=== PATIENT | male | born 1940 | race Caucasian/White ===

== ENCOUNTER 2017-12-28 07:59 | Day surgery (SDC) | payer OTHER, BC ==
[2017-12-28 08:47] VITALS: BMI 28.9
[2017-12-28] MEDS ORDERED: PROPOFOL 20 ML ONE ×5 (08:56)
[2017-12-28] MEDS ORDERED: LIDOCAINE HCL/PF 2% SDV 5ML VIAL ONE (08:56)
[2017-12-28 10:07] VITALS: TEMP 98
[2017-12-28 11:08] VITALS: BP 138/90; PULSE 56
--- NOTE | 2017-12-31 11:47 | PATH ---
Surgical Pathology Report Patient Name: MARINA HUGHES [facility]. Rec. #: [id number] /Age/Gender: 1940 (Age: 77) / M Account: [id number] Location: U-ENDOSCOPY Taken: 12/28/2017 Received: 12/28/2017 Reported: 12/31/2017 Physicians: Inder Stevens M.D. Specimen(s) Received A: BX SECOND PORTION DUODENUM AND BULB B: BX ANTRUM AND BODY C: BX RECTAL POLYP D: POLYP ROXIMAL TRANSVERSE COLON E: MID TRANSVERSE COLON POLYP Clinical History Abdominal pain Family history colon adenoma, colon cancer screening Final Diagnosis A. DUODENUM, SECOND PORTION AND BULB, BIOPSY: DUODENAL MUCOSA WITH NO PATHOLOGIC CHANGES. NO HISTOLOGIC EVIDENCE OF GLUTEN SENSITIVE ENTEROPATHY (CELIAC SPRUE) IDENTIFIED. B. STOMACH, ANTRUM AND BODY, BIOPSY: MODERATE CHRONIC GASTRITIS. IMMUNOSTAIN FOR H. PYLORI IS POSITIVE (FEW ORGANISMS). C. COLON, RECTUM, BIOPSY: HYPERPLASTIC POLYP. D. COLON, PROXIMAL TRANSVERSE, POLYPECTOMY: TWO PORTIONS OF TUBULAR ADENOMA. E. COLON, MIDTRANSVERSE, BIOPSY: COLONIC MUCOSA WITH NO PATHOLOGIC CHANGES. NO ADENOMATOUS OR HYPERPLASTIC CHANGES IDENTIFIED. Comment: Recommend correlation with clinical findings and follow up as clinically indicated. Electronically Signed Sedrick Ga M.D. Gross Description A. Received in formalin, labeled "BX second portion duodenum and duodenal bulb" are 4 michael, irregular portions of soft tissue measuring 0.1-0.3 cm. in greatest dimension. The specimens are submitted in toto in one cassette. B. Received in formalin, labeled "BX antrum and body" are 5 michael, irregular portions of soft tissue ranging in size from 0.2-0.4 cm. in greatest dimension. The specimens are submitted in toto in one cassette. C. Received in formalin, labeled "BX rectal polyp" are 4 michael, irregular portions of soft tissue ranging in size 0.1 and 0.2 cm. in greatest dimension. The specimens are submitted in toto in one cassette. D. Received in formalin, labeled "polyp proximal transverse colon" are multiple michael, irregular portions of soft tissue ranging in size from 0.1-0.5 cm. in greatest dimension. The base of the largest polyp is inked in black and subsequently bisected. The specimens are submitted in toto in 2 cassettes (2-largest polyp). E. Received in formalin, labeled "mid transverse colon polyp" is a michael, irregular portion of soft tissue measuring 0.1 cm. in greatest dimension. The specimen is submitted in toto in one cassette. MP/12/28/2017 donal12/28/2017
== END 2017-12-28 11:07 | disposition home or self-care (01) ==
LOC: JASU-ENDO 07:59
PROVIDERS: ATTEND Internal Medicine Gastroenterology
PROC: 0DBP8ZX Excision of Rectum, Via Natural or Artificial Opening Endoscopic, Diagnostic (ICD-10-PCS; 2017-12-28)
PROC: 0DB98ZX Excision of Duodenum, Via Natural or Artificial Opening Endoscopic, Diagnostic (ICD-10-PCS; 2017-12-28)
PROC: 0DB68ZX Excision of Stomach, Via Natural or Artificial Opening Endoscopic, Diagnostic (ICD-10-PCS; 2017-12-28)
PROC: 0DBL8ZX Excision of Transverse Colon, Via Natural or Artificial Opening Endoscopic, Diagnostic (ICD-10-PCS; principal; 2017-12-28 08:45)
DX: Z12.11 Encounter for screening for malignant neoplasm of colon (principal); Z83.71 Family history of colonic polyps; K62.1 Rectal polyp; K64.8 Other hemorrhoids; D12.3 Benign neoplasm of transverse colon; K29.50 Unspecified chronic gastritis without bleeding; B96.81 Helicobacter pylori [H. pylori] as the cause of diseases classified elsewhere
CPT/HCPCS: 88305-TC; 88342-TC

== ENCOUNTER 2019-02-17 07:36 | Day surgery (SDC) | payer OTHER, BC ==
[2019-02-17 08:25] VITALS: BMI 33.0
[2019-02-17 09:45] VITALS: TEMP 97.6
[2019-02-17 12:11] VITALS: BP 135/72; PULSE 60
--- NOTE | 2019-02-19 14:20 | PATH ---
Surgical Pathology Report Patient Name: MARINA HUGHES [facility]. Rec. #: [id number] /Age/Gender: 1940 (Age: 78) / M Account: [id number] Location: U-ENDOSCOPY Taken: 02/17/2019 Received: 02/17/2019 Reported: 02/19/2019 Physicians: Inder Stevens M.D. Specimen(s) Received A: RECTUM POLYP COLD SNARE B: CECAL POLYP BX C: RIGHT COLON POLYP HOT SNARE D: MID TRANSVERSE COLON ULCERS R/O POLYP Clinical History Adenomatous polyp surveillance Final Diagnosis A. RECTUM, POLYP, COLD SNARE POLYPECTOMY: HYPERPLASTIC POLYP. B. CECUM, POLYP, BIOPSY: COLONIC MUCOSA SHOWING MILD SURFACE HYPERPLASTIC CHANGE. C. RIGHT COLON, POLYP, HOT SNARE POLYPECTOMY: TUBULAR ADENOMA. D. MID TRANSVERSE COLON, ULCERS R/O POLYP, BIOPSY: FRAGMENTS OF HYPERPLASTIC POLYP AND COLONIC MUCOSA WITH SURFACE ULCERATION. Electronically Signed Tran Mason M.D. Gross Description A. Received in formalin, labeled "rectal polyp cold snare" is one piece of michael tissue measuring 0.7 cm in greatest dimension. Entirely submitted in one cassette. B. Received in formalin, labeled "cecal polyp bx" is one piece of michael tissue measuring 0.5 cm in greatest dimension. Entirely submitted in one cassette. C. Received in formalin, labeled "right colon polyp hot snare" are two pieces of michael tissue measuring 0.2 cm and 0.3 cm in greatest dimension. Entirely submitted in one cassette. D. Received in formalin, labeled "mid transverse colon ulcers r/o polyp" are four pieces of michael tissue ranging from 0.2-0.3 cm in greatest dimension. Entirely submitted in one cassette. AE/02/17/2019 ebram/02/17/2019
== END 2019-02-17 10:45 | disposition home or self-care (01) ==
LOC: JASU-ENDO 07:36
PROVIDERS: ATTEND Internal Medicine Gastroenterology
PROC: 0DBP8ZX Excision of Rectum, Via Natural or Artificial Opening Endoscopic, Diagnostic (ICD-10-PCS; 2019-02-17)
PROC: 0DBK8ZX Excision of Ascending Colon, Via Natural or Artificial Opening Endoscopic, Diagnostic (ICD-10-PCS; 2019-02-17)
PROC: 0DBL8ZX Excision of Transverse Colon, Via Natural or Artificial Opening Endoscopic, Diagnostic (ICD-10-PCS; 2019-02-17)
PROC: 0DBH8ZX Excision of Cecum, Via Natural or Artificial Opening Endoscopic, Diagnostic (ICD-10-PCS; 2019-02-17)
PROC: 0DBK8ZX Excision of Ascending Colon, Via Natural or Artificial Opening Endoscopic, Diagnostic (ICD-10-PCS; principal; 2019-02-17 08:45)
DX: Z86.010 Personal history of colon polyps (principal); D12.2 Benign neoplasm of ascending colon; K63.5 Polyp of colon; K62.1 Rectal polyp; K63.3 Ulcer of intestine
CPT/HCPCS: 88305-TC

== ENCOUNTER 2021-09-05 10:56 | Emergency (ER) | payer OTHER, BC ==
[2021-09-05 11:12] VITALS: TEMP 97.6; BMI 29.0
[2021-09-05 16:12] LABS: BASO % 0.4 % (0-2.0); EOS % 1.7 % (0-4.5); HEMATOCRIT 40.1 % (35.4-49); HEMOGLOBIN 13.8 GM/dL (11.7-16.9); LYMPH % 21.1 % (8-40); MCH 31.8 pg (25.7-33.7); MCHC 34.5 g/dl (32.0-35.9); MEAN CELL VOLUME 92.3 fl (80-96); MEAN PLT VOLUME 7.3 fl (7.5-11.1); MONO % 10.2 % (3.8-10.2); NEUT % 66.6 % (42.8-82.8); PLATELET COUNT 314 10^3/uL (134-434); RBC 4.35 M/mm3 (4.00-5.60); RDW 13.9 % (11.9-15.9); WHITE BLOOD COUNT 8.9 K/mm3 (4.0-10.0)
[2021-09-05 16:22] LABS: INR 1.13 (0.83-1.09); PROTHROMBIN TIME (PATIENT) 13.2 SEC (9.7-13.0)
[2021-09-05 16:32] LABS: CALCIUM 9.7 mg/dL (8.5-10.1)
[2021-09-05 16:33] LABS: ALBUMIN 3.4 g/dl (3.4-5.0); BLOOD UREA NITROGEN 15.1 mg/dL (7-18)
[2021-09-05 16:36] LABS: CREATININE 0.9 mg/dL (0.55-1.3)
[2021-09-05 16:38] LABS: BILIRUBIN,TOTAL 0.6 mg/dL (0.2-1); TOT PROT 6.6 g/dl (6.4-8.2)
[2021-09-05 18:47] VITALS: BP 161/79; PULSE 74
== END 2021-09-05 19:15 | disposition home or self-care (01) ==
LOC: JER 10:56
DX: R04.2 Hemoptysis (principal)
CPT/HCPCS: 36415; 71275-TC; 80053; 85025; 85610; 85730; 93005; 93010; 99285-25; C9803; Q9967; U0003; U0005